=== PATIENT | male | born 1970 | race African-American/Black ===

== ENCOUNTER 2017-02-20 19:44 | Emergency (ER) | payer OTHER ==
[2017-02-20 20:34] VITALS: BP 137/97
[2017-02-20 21:17] LABS: Anion Gap 19 mmol/L; BUN/Creatinine Ratio 38; Blood Urea Nitrogen 23 mg/dL (9-20); Calcium 9.3 mg/dL (8.4-10.2); Carbon Dioxide 28 mmol/L (22-30); Chloride 95.9 mmol/L (98-107); Glucose 188 mg/dL (75-100); Potassium 4.1 mmol/L (3.6-5.0); Sodium 139 mmol/L (137-145)
[2017-02-20 21:24] LABS: Basophils % (Auto) 0.2 % (0.0-1.8); Eosinophils % (Auto) 0.1 % (0.0-4.3); Hematocrit 38.9 % (35.5-45.6); Hemoglobin 13.3 gm/dl (11.8-15.2); Mean Corpuscular HGB Conc 34 % (32-34); Mean Corpuscular Hemoglobin 27 pg (28-32); Mean Corpuscular Volume 80 fl (84-94); Platelet Count 464 K/mm3 (140-440); Red Blood Count 4.87 M/mm3 (3.65-5.03); Red Cell Distribution Width 14.1 % (13.2-15.2); White Blood Count 13.6 K/mm3 (4.5-11.0)
[2017-02-20 21:34] LABS: INR 0.9 (0.87-1.13)
[2017-02-20 21:35] LABS: Partial Thromboplastin Time 30.5 Sec. (24.2-36.6)
== END 2017-02-21 03:40 | disposition left against medical advice (07) ==
LOC: ED 19:44
DX: R04.0 Epistaxis (principal); Z53.21 Procedure and treatment not carried out due to patient leaving prior to being seen by health care provider
CPT/HCPCS: 36415; 80048; 85025; 85610; 85730

== ENCOUNTER 2017-03-10 11:00 | Outpatient (CLI) | payer OTHER | END 2017-03-10 11:01 | disposition home or self-care (01) | LOC: SLR 11:00 | PROVIDERS: ATTEND Otolaryngology | DX: G47.30 Sleep apnea, unspecified (principal) | CPT/HCPCS: G0399 ==